=== PATIENT | female | born 1950 | race Caucasian/White ===

== ENCOUNTER 2016-05-27 04:21 | Inpatient (IN) | payer BC ==
[~2016-05-27] VITALS: Ht 152.4 cm; Wt 43.0 kg
[2016-05-27] MEDS ORDERED: ALBUTEROL/IPRATROPIUM 3MG-0.5MG/3ML (DUONEB) NEB VIAL INH ONE (04:35)
[2016-05-27] MEDS ORDERED: SODIUM CHLORIDE FLUSH 10 ML SYR IV PRN (04:35)
[2016-05-27] MEDS ORDERED: methylPREDNISolone 125 MG (Solu-MEDROL) VIAL IV ONE (04:35)
[2016-05-27] MEDS ORDERED: SODIUM CHLORIDE FLUSH 3 ML SYR IV PRN (04:35)
[2016-05-27 04:51] LABS: MEAN CORPUSCULAR HGB CONC 35.4 g/dL (31.0-37.0); MEAN CORPUSCULAR VOLUME 89 FL (80-100); MEAN PLATELET VOLUME 9.2 FL (6.0-9.5); PLATELET COUNT 314 10^3uL (150-450); WHITE BLOOD COUNT 7.28 10^3uL (4.0-11.0)
[2016-05-27 05:04] LABS: ALBUMIN 4.3 g/dL (3.4-5.0); ALKALINE PHOSPHATASE 88 U/L (38-126); ANION GAP 16.4 MEQ/L (3-15); BUN/CREATININE RATIO 12 (10-20); CALCULATED IONIZED CALCIUM 4.2 mg/dL (3.8-4.6); TOTAL PROTEIN 7.4 g/dL (6.4-8.5)
[2016-05-27 05:15] LABS: MEAN CORPUSCULAR HEMOGLOBIN 31.4 PG (26.0-34.0)
--- NOTE | 2016-05-27 05:17 | NUR ---
Patient relaxed in bed with eyes closed. Respirations are more even and slower, 22 BPM
[2016-05-27 05:31] LABS: ANISOCYTOSIS SLIGHT; BAND NEUTROPHILS % 0 % (0-6); EOSINOPHILS % 2 % (0-4); MONOCYTES # 0.5 #; MONOCYTES % 7 % (3-11); POIKILOCYTOSIS SLIGHT; SEGMENTED NEUTROPHILS % 49 % (51-67); TOTAL CELLS COUNTED 100
[2016-05-27 05:38] LABS: RBC MORPH SEE REFERENCE (NORMAL)
[2016-05-27] MEDS ORDERED: GUAIFENESIN/CODEINE 100MG-10MG/5ML SYRUP (ROBITUSSIN AC) 5 ML UDC PO ONE (05:45)
--- NOTE | 2016-05-27 06:34 | NUR ---
Oxygen at 2L/NC applied d/t blood gas drawn indicated Sa02 89% compared to our pulseoximety of 93-95% on RA.
--- NOTE | 2016-05-27 06:46 | NUR ---
NOTIFIED LPN PRIVATE DUTY OF ADMIT
[2016-05-27 06:57] LABS: ABG OXYGEN SATURATION 89 % (95-98); ABG PCO2 30 mmHg (35-45); ABG PH 7.33 (7.35-7.45); ABG PO2 60 mmHg (80-105)
--- NOTE | 2016-05-27 07:45 | NUR ---
patient arrives to room 302. Assessment is ongoing
[2016-05-27 08:20] VITALS: BP 142/76
[2016-05-27] MEDS ORDERED: ACETAMINOPHEN 325 MG TAB (TYLENOL) PO PRN (08:35)
[2016-05-27] MEDS ORDERED: POLYETHYLENE GLYCOL 17 GM (MIRALAX) PACKET PO PRN (08:35)
[2016-05-27] MEDS ORDERED: ONDANSETRON 4 MG (ZOFRAN) ORAL DISSOLVE TAB PO PRN (08:35)
[2016-05-27] MEDS ORDERED: IBUPROFEN 600 MG (MOTRIN) TAB PO PRN (08:35)
[2016-05-27 09:05] VITALS: BP 142/76
[2016-05-27] MEDS ORDERED: LACTATED RINGERS 1,000 ML IV SCH (09:09)
[2016-05-27] MEDS: ENOXAPARIN 30 MG/0.3 ML (LOVENOX) SYR SC SCH (09:34)
--- NOTE | 2016-05-27 09:36 | NUR ---
MED REC COMPLETE--current med list obtained from external med history application.
[2016-05-27] MEDS ORDERED: ALBUTEROL 0.083% NEB SOLUTION 2.5 MG/3 ML VIAL INH PRN (10:15)
[2016-05-27] MEDS: ALBUTEROL/IPRATROPIUM 3MG-0.5MG/3ML (DUONEB) NEB VIAL INH SCH ×3 (10:52→22:58)
--- NOTE | 2016-05-27 14:19 | NUR ---
Patient rests quietly in bed without complaint since admission. respirations are even and unlabored as she mostly rests under the covers with eyes closed. The patient is able to make needs known, continuous pulse oximetry in place.
[2016-05-27 15:45] VITALS: BP 120/70
[2016-05-27] MEDS: DOXYCYCLINE 100 MG (VIBRAMYCIN) TABLET PO SCH (18:23)
--- NOTE | 2016-05-27 19:14 | NUR ---
Report given to Mimi SANCHEZ and care relinquished
--- NOTE | 2016-05-27 19:15 | NUR ---
Pt is sitting up in bed, watching tv. Alert and oriented x 4, Resp are even and nonlabored, LCTA with diminished bases bilaterally, does have SOA with exertion, and dry, hacking cough, wearing 2LPM via NC, HRRR, BS are active x 4 quadrants. SL to RBH is patent, no redness, swelling, or s/s of infection noted at this time. Denies pain or discomfort at this time. See assessment for further information, call light is in reach, will continue to monitor.
[2016-05-27 23:44] VITALS: BP 115/68
--- NOTE | 2016-05-28 04:27 | NUR ---
Pt has been asleep majority of this shift, resp are even and nonlabored, call light is in reach, will continue to monitor.
[2016-05-28] MEDS: DOXYCYCLINE 100 MG (VIBRAMYCIN) TABLET PO SCH ×2 (05:42→18:36)
[2016-05-28 06:09] LABS: MEAN CORPUSCULAR HGB CONC 34.6 g/dL (31.0-37.0); MEAN CORPUSCULAR VOLUME 90 FL (80-100); MEAN PLATELET VOLUME 9.7 FL (6.0-9.5); PLATELET COUNT 309 10^3uL (150-450); WHITE BLOOD COUNT 9.76 10^3uL (4.0-11.0)
[2016-05-28 06:27] LABS: ALBUMIN 3.6 g/dL (3.4-5.0); ANION GAP 15.1 MEQ/L (3-15); CALCULATED IONIZED CALCIUM 4.7 mg/dL (3.8-4.6); TOTAL PROTEIN 6.3 g/dL (6.4-8.5)
[2016-05-28 06:51] LABS: BAND NEUTROPHILS % 1 % (0-6); EOSINOPHILS % 0 % (0-4); LYMPHOCYTES # 1.1 #; MONOCYTES # 0.4 #; MONOCYTES % 4 % (3-11); SEGMENTED NEUTROPHILS % 84 % (51-67); TOTAL CELLS COUNTED 100
[2016-05-28 06:52] LABS: RBC MORPH NORMAL (NORMAL)
[2016-05-28] MEDS: ALBUTEROL/IPRATROPIUM 3MG-0.5MG/3ML (DUONEB) NEB VIAL INH SCH ×4 (07:15→20:21)
--- NOTE | 2016-05-28 07:20 | NUR ---
Pt found lying in bed on 1 l/min NC, SPO2 95%, HR 84, RR 16 and non labored at this time. BS have fine crackles throughout al;l lung musa with more in bilateral bases before Tx with Duoneb via SVN. BS unchanged post Tx. Pt has a dry hacking cough. IS x 5 x 750 ml. 02 titrated to RA.
[2016-05-28 07:48] VITALS: BP 140/70
--- NOTE | 2016-05-28 08:12 | NUR ---
NUTRITION ASSESSMENT Level 1 Patient: Aline Chew Age/Sex: 65/F Date Screened: 05-28-16 Weight: 96.1#/43.7 kg Height: 60 inches Primary Diagnosis: COPD Diet Order: regular Relevant labs: glucose 124 Food allergies: N Nutrition Assessment Criteria Age over 80: N Body Mass Index (BMI) under 19: 6 points Admission Screening Indicates Risk? N Moderate/High Risk Diagnosis: 3 points TPN or PPN: N NPO or clear liquid diet: N Serum Glucose <70 or >180: N Hgb A1c >6.7: N/A Total: 9 points Risk Screen: __ Patient at low nutritional risk based on available data; reevaluate in 5-7 days __ Patient at moderate nutritional risk based on available data; reevaluate in 3-5 days _X_ Patient at high nutritional risk; complete Nutrition Assessment within 48 hours of admission.
[2016-05-28] MEDS: predniSONE 20 MG (DELTASONE) TABLET PO SCH (08:31)
[2016-05-28] MEDS: ENOXAPARIN 30 MG/0.3 ML (LOVENOX) SYR SC SCH (08:31)
--- NOTE | 2016-05-28 10:26 | NUR ---
NUTRITION ASSESSMENT Level II Patient: Aline hCew Age/Sex: 65/F Date Assessed: 05-28-16 ASSESSMENT Pertinent History: Patient admitted with COPD and screened at high nutritional risk secondary to BMI <19 and diagnosis. PMHx includes COPD, tobacco abuse and hyperlipidemia. She lives at home with her and denied GI concerns or weight changes, but reports poor appetite with this illness. Meds/Nutrition: Prednisone Weight: 96.1#/43.7 kg Height: 60 inches Body Mass Index (BMI): 18.8 [place] Body Weight : 100#/45.4 kg % IBW: 96% GASTROINTESTINAL Appetite: improvingwas 0-10% yesterday, 50% this morning Diet Order: regular Unintentional loss of >10 lbs. in 3 months: N Difficult to chew/swallow: N Diabetes: N Relevant Labs: glucose 124 Calculations for Nutritional Assessment Estimated calorie needs: 28-30 kcals/kg = 1,200-1,290 kcals Estimated protein needs: 1.3-1.5 g/kg = 56-64 g./day DIAGNOSIS 1. Nutrition Diagnosis: Increased protein needs related to increased work of breathing as evidenced by COPD with low BMI. NUTRITIONAL INTERVENTION Goal: Patient will receive adequate nutrition to meet her needs. Plan: Will provide regular diet as ordered with minimum 56 g. protein/day as calculated above. Because appetite/intake is improving, will not change to small portions yet; may benefit from supplemental Ensure between meals. Will follow closely. MONITORING & EVALUATION _X_ Monitor patients menu selections _X_ Monitor patients food intake per nursing notes __ Monitor NPO/clear liquid days __ Monitor lab values __ Monitor I&O __ Other
--- NOTE | 2016-05-28 13:07 | NUR ---
Pt found lying in bed on 1 l/min NC, SPO2 90%, HR 98, RR 18 and non labored at this time. BS have fine rhonchi in left upper and lower lobe, Right lung is clear at this time. Duoneb given via SVN, tolerated well. BS unchanged post Tx.
[2016-05-28] MEDS: MONTELUKAST 10 MG (SINGULAIR) TAB PO SCH (13:54)
--- NOTE | 2016-05-28 14:26 | NUR ---
MULTIDISCIPLINARY MTG/DR. MARTINES: Pt. admitted for COPD exacerbation due to Rhino/Entero virus. Pt. also has a mild kidney issue. Pt. still requires oxygen and is not moving air well. Pt. will remain on COPD therapies and is receiving doxycycline. No discharge needs identified at this time.
[2016-05-28] MEDS ORDERED: NICOTINE 21 MG (NICODERM) PATCH TD PRN (15:15)
[2016-05-28 15:25] VITALS: BP 122/64
--- NOTE | 2016-05-28 17:30 | NUR ---
Pt has rested in bed this shift. Up ad rene to RR. Skin warm, dry, intact. Resprs nonlabored, even on 1L NC. Pt has denied SOA or pain this shift. NS @ 100mL/hr infusing at this time. Denies needs. Call light within reach.
--- NOTE | 2016-05-28 19:15 | NUR ---
Pt is sitting up in bed, watching tv. Alert and oriented x 4, Resp are even and nonlabored, LCTA with diminished bases bilaterally, does have SOA with exertion, and dry, hacking cough, wearing 1LPM via NC, HRRR, BS are active x 4 quadrants. IV infusing without difficulty, no redness, swelling, or s/s of infection noted at this time. Denies pain or discomfort at this time. See assessment for further information, call light is in reach, will continue to monitor.
[2016-05-28] MEDS: FLUTICASONE/SALMETEROL HFA 115/21 MCG (ADVAIR) COMMON CANNISTER INH SCH (20:10)
[2016-05-28] MEDS ORDERED: FLUTICASONE/SALMETEROL HFA 115/21 MCG (ADVAIR) COMMON CANNISTER INH ONE (21:00)
[2016-05-28] MEDS: SIMvastatin 40 MG (ZOCOR) TAB PO SCH (21:01)
[2016-05-28 23:50] VITALS: BP 140/65
--- NOTE | 2016-05-29 03:52 | NUR ---
Pt has been asleep majority of this shift, resp are even and nonlabored, call light is in reach, will continue to monitor.
[2016-05-29] MEDS: DOXYCYCLINE 100 MG (VIBRAMYCIN) TABLET PO SCH ×2 (05:36→17:44)
[2016-05-29] MEDS: ALBUTEROL/IPRATROPIUM 3MG-0.5MG/3ML (DUONEB) NEB VIAL INH SCH ×4 (07:37→19:41)
[2016-05-29] MEDS: FLUTICASONE/SALMETEROL HFA 115/21 MCG (ADVAIR) COMMON CANNISTER INH SCH ×2 (07:37→19:41)
[2016-05-29 07:41] VITALS: BP 136/62
--- NOTE | 2016-05-29 08:01 | NUR ---
Pt sitting up in bed, eating bfst. States she is not SOA- but coughing up some white thick sputum. At shift change this AM patient was on 1L nc. Jadyn RT titrated to RA at 0745. Will cont to monitor patient. Faint expiratory wheeze noted.
[2016-05-29] MEDS ORDERED: guaiFENesin ER 600 MG (MUCINEX) TAB PO SCH (09:00)
[2016-05-29] MEDS: MONTELUKAST 10 MG (SINGULAIR) TAB PO SCH (09:11)
[2016-05-29] MEDS: ENOXAPARIN 30 MG/0.3 ML (LOVENOX) SYR SC SCH (09:11)
[2016-05-29] MEDS: predniSONE 20 MG (DELTASONE) TABLET PO SCH (09:11)
[2016-05-29 09:35] LABS: ALBUMIN 3.5 g/dL (3.4-5.0); ANION GAP 13.2 MEQ/L (3-15); MAGNESIUM* 2.3 mg/dL (1.6-2.3); PHOSPHORUS 3.2 mg/dL (2.4-4.9)
[2016-05-29] MEDS: guaiFENesin SYRUP 200 MG/10 ML (ROBITUSSIN) UDC PO SCH ×3 (12:26→20:38)
--- NOTE | 2016-05-29 14:44 | NUR ---
Pt sitting in bed, calls appropriately for needs. Remains on RA at this time. Jadyn RT had spot checked SpO2 91% RA. Will cont to monitor.
[2016-05-29 16:04] VITALS: BP 142/60
--- NOTE | 2016-05-29 17:18 | NUR ---
92% on room air today. Tol. HARPAL winters's well, good NPC today. IS on her own.
--- NOTE | 2016-05-29 17:56 | NUR ---
Call placed to Chanel Robles in pharmacy to have Potassium tabs changed to liquid as patient can not swallow large pills. Chanel Robles states she will change order. Family is at bedside. Denies needs at this time.
[2016-05-29] MEDS ORDERED: POTASSIUM CHLORIDE ER 20 MEQ TABLET PO SCH (18:00)
--- NOTE | 2016-05-29 19:47 | NUR ---
Pt found lying in bed awake, SPO2 92% on RA, HR 88, RR 16 and non labored with clear BS before and after Duoneb and Advair. IS continued on her own
[2016-05-29] MEDS: SIMvastatin 40 MG (ZOCOR) TAB PO SCH (20:38)
[2016-05-30] VITALS: BP 147/72
[2016-05-30] MEDS: DOXYCYCLINE 100 MG (VIBRAMYCIN) TABLET PO SCH (06:05)
[2016-05-30 06:26] LABS: ALBUMIN 3.6 g/dL (3.4-5.0); ANION GAP 11.8 MEQ/L (3-15); PHOSPHORUS 3.9 mg/dL (2.4-4.9)
--- NOTE | 2016-05-30 06:28 | NUR ---
Patient rests in bed throughout night without needs. Reports this mornings that she slept on and off and is feeling alright. Has been on room air all night. No needs at this time.
[2016-05-30 07:40] VITALS: BP 132/68
[2016-05-30] MEDS: FLUTICASONE/SALMETEROL HFA 115/21 MCG (ADVAIR) COMMON CANNISTER INH SCH (08:00)
[2016-05-30] MEDS ORDERED: POTASSIUM CHLORIDE ORAL SOLUTION 20 MEQ/15 ML (KCL) UDC PO SCH (08:00)
[2016-05-30] MEDS: ALBUTEROL/IPRATROPIUM 3MG-0.5MG/3ML (DUONEB) NEB VIAL INH SCH ×3 (08:00→13:55)
[2016-05-30] MEDS: guaiFENesin SYRUP 200 MG/10 ML (ROBITUSSIN) UDC PO SCH ×2 (08:56→12:30)
[2016-05-30] MEDS: ENOXAPARIN 30 MG/0.3 ML (LOVENOX) SYR SC SCH (08:57)
[2016-05-30] MEDS: MONTELUKAST 10 MG (SINGULAIR) TAB PO SCH (08:57)
[2016-05-30] MEDS: predniSONE 20 MG (DELTASONE) TABLET PO SCH (08:57)
--- NOTE | 2016-05-30 10:06 | NUR ---
Pt. on room air, 93%. Pt. states feeling good, BS are ess. clear with NPC. Pt. not taking tx's during the night.
--- NOTE | 2016-05-30 10:22 | NUR ---
Pt remains on RA. Denies difficulty breathing without O2. IV SL intact. She is playing on her tablet, awaiting Dr. mcdonnell.
--- NOTE | 2016-05-30 13:55 | NUR ---
Discharge instructions reviewed with patient and family. verbalized understanding. IV dc'd from [facility]- coban placed. Tip intact, site without bleeding, redness/swelling.
--- NOTE | 2016-05-30 14:30 | NUR ---
Pt dismissed to home via w/c accompanied by Family. Diann Valladares CNA accompanied out of hospital.
== END 2016-05-30 14:31 | disposition home or self-care (01) | DRG 189 ==
LOC: ED 04:22 → MED/SURG 06:43 → OBSVTOIN 06:43 → UNDOADMOB 06:43
PROVIDERS: ADMIT Pediatrics; ATTEND Pediatrics
DX: J96.01 Acute respiratory failure with hypoxia (principal); J44.1 Chronic obstructive pulmonary disease with (acute) exacerbation; E87.2 Acidosis; E87.3 Alkalosis; N17.9 Acute kidney failure, unspecified; Z66 Do not resuscitate; J06.9 Acute upper respiratory infection, unspecified; E86.0 Dehydration; E78.5 Hyperlipidemia, unspecified; F17.210 Nicotine dependence, cigarettes, uncomplicated; B97.19 Other enterovirus as the cause of diseases classified elsewhere; B97.89 Other viral agents as the cause of diseases classified elsewhere
CPT/HCPCS: 36415; 71020; 80053; 80069; 82803; 83605; 83735; 84484; 85025; 87486; 87581; 87633; 87798; 93005; 93010; 94640; 94760; 94762; 96374; 99285; 99291